=== PATIENT | female | born 1935 | race Caucasian/White ===

== ENCOUNTER 2021-04-29 09:14 | Emergency (ER) | payer MEDICARE | END 2021-04-29 11:21 | disposition home or self-care (01) | LOC: CSHERS 09:14 | DX: I95.9 Hypotension, unspecified (principal); K21.9 Gastro-esophageal reflux disease without esophagitis; E78.5 Hyperlipidemia, unspecified; I10 Essential (primary) hypertension; G43.909 Migraine, unspecified, not intractable, without status migrainosus; Z87.891 Personal history of nicotine dependence; Z79.899 Other long term (current) drug therapy | CPT/HCPCS: 93005 ==

== ENCOUNTER 2021-06-06 16:33 | Emergency (ER) | payer MEDICARE ==
[2021-06-06 18:10] LABS: #Basophils 0.1 10x3/uL (0.0-0.2); #Eosinphils 0.1 10x3/uL (0.0-0.5); #Monocytes 0.7 10x3/uL (0.0-1.1); #Neutrophils 12.2 10x3/uL (1.5-8.4); %Basophils 0.4 % (0.0-2.0); %Eosinophils 0.8 % (0.0-6.0); %Monocytes 4.8 % (0.0-10.0); %Neutrophils 86.7 % (40.0-75.0); Hemoglobin 13.8 g/dL (12.0-15.5); Mean Corpuscular HGB CONC 32.6 g/dL (32.0-36.0); Mean Corpuscular Volume 95.1 fl (81.6-98.3); Mean Platelet Volume 10.5 fl (7.4-10.4); Platelet Count 203 10x3/uL (150-450); Red Blood Cell (RBC) Count 4.45 10x6/uL (3.90-5.03); White Blood Cell (WBC) Count 14.1 10x3/uL (3.5-10.5)
[2021-06-06 18:18] LABS: ALT (SGPT) 57 U/L (8-55); AST (SGOT) 57 U/L (5-34); Albumin 4.4 g/dL (3.4-4.8); Alkaline Phosphatase 122 U/L (40-110); Anion Gap 19 mmol/L (10-20); BUN (Urea Nitrogen) 33 mg/dL (9.8-20.1); Bilirubin, Total 0.6 mg/dL (0.2-1.2); Calc. Creatinine Clearance 0 mL/min (70-130); Calcium 9.8 mg/dL (7.8-10.44); Carbon Dioxide 20 mmol/L (23-31); Chloride 105 mmol/L (98-107); Glucose 108 mg/dL (83-110); Potassium 4.5 mmol/L (3.5-5.1); Protein, Total 7.4 g/dL (5.8-8.1); Sodium 139 mmol/L (136-145)
[2021-06-06] MEDS ORDERED: Ondansetron PF 4 MG/2 ML Vial ONE (19:35)
[2021-06-06] MEDS ORDERED: Morphine 4 MG/ML VIAL ONE (19:35)
[2021-06-06 23:23] LABS: Bilirubin 1+ (Negative); Blood, Urine 10 (Negative); Clarity Clear (Clear); Glucose, Urine (Dipstick) Normal (Negative); Ketone, Urine 15 mg/dL (Negative); Leukocyte 500 (Negative); Nitrite Positive (Negative); Protein, Urine (Dipstick) 15 mg/dl (Neg-Trace); Specific Gravity, Urine 1.015 (1.002-1.036)
[2021-06-06 23:32] LABS: Bacteria/HPF 4+ HPF (None Seen); Mucous/LPF 2+ LPF (<2+); RBC/HPF 0-3 HPF (0-3); WBC/HPF 21-50 HPF (0-3); White Blood Cell Cast 0-3 LPF (None Seen)
[2021-06-06] MEDS ORDERED: Amoxicillin/Potassium Clav 875 MG TAB ONE (23:41)
== END 2021-06-06 23:44 | disposition home or self-care (01) ==
LOC: CSHERS 16:33
DX: K52.9 Noninfective gastroenteritis and colitis, unspecified (principal); E78.00 Pure hypercholesterolemia, unspecified; E78.5 Hyperlipidemia, unspecified; K21.9 Gastro-esophageal reflux disease without esophagitis; I10 Essential (primary) hypertension; G43.909 Migraine, unspecified, not intractable, without status migrainosus; Z87.891 Personal history of nicotine dependence
CPT/HCPCS: 36415; 51701; 71250; 74177; 80053; 81003; 81015; 83605; 83690; 85025; 87077; 87086; 87186; 93005; 93010; 96374; 96375; J2270; J2405

== ENCOUNTER 2021-06-10 16:29 | Inpatient (IN) | payer MEDICARE ==
[2021-06-10] MEDS ORDERED: Morphine 4 MG/ML VIAL ONE (17:14)
[2021-06-10] MEDS ORDERED: Ondansetron PF 4 MG/2 ML Vial ONE (17:14)
[2021-06-10 18:03] LABS: ALT (SGPT) 248 U/L (8-55); AST (SGOT) 338 U/L (5-34); Albumin 3.8 g/dL (3.4-4.8); Alkaline Phosphatase 100 U/L (40-110); Anion Gap 14 mmol/L (10-20); BUN (Urea Nitrogen) 22 mg/dL (9.8-20.1); Bilirubin, Total 0.5 mg/dL (0.2-1.2); Calc. Creatinine Clearance 0 mL/min (70-130); Calcium 9.2 mg/dL (7.8-10.44); Carbon Dioxide 23 mmol/L (23-31); Chloride 103 mmol/L (98-107); Globulin 2.6 g/dL (2.4-3.5); Glucose 76 mg/dL (83-110); Lipase 28 U/L (8-78); Potassium 3.7 mmol/L (3.5-5.1); Protein, Total 6.4 g/dL (5.8-8.1); Sodium 136 mmol/L (136-145)
[2021-06-10 18:53] LABS: #Eosinphils 0.2 10x3/uL (0.0-0.5); #Monocytes 0.5 10x3/uL (0.0-1.1); #Neutrophils 4.2 10x3/uL (1.5-8.4); %Basophils 0.4 % (0.0-2.0); %Eosinophils 3.9 % (0.0-6.0); %Lymphocytes 12.5 % (18.0-47.0); %Monocytes 8.8 % (0.0-10.0); Hemoglobin 12.5 g/dL (12.0-15.5); Mean Corpuscular HGB CONC 32.1 g/dL (32.0-36.0); Mean Corpuscular Hemoglobin 30.8 pg (27.0-33.0); Mean Corpuscular Volume 96.1 fl (81.6-98.3); Mean Platelet Volume 10.7 fl (7.4-10.4); RBC Distribution Width 13.2 % (11.5-14.5); Red Blood Cell (RBC) Count 4.06 10x6/uL (3.90-5.03); White Blood Cell (WBC) Count 5.7 10x3/uL (3.5-10.5)
[2021-06-10 18:54] LABS: Platelet Count 142 10x3/uL (150-450)
[2021-06-10] MEDS ORDERED: metroNIDAZOLE 500 MG/100 ML BAG ONE (19:31)
[2021-06-10 19:36] LABS: SARS-CoV-2 NAA Rapid Test Not Detected (NotDetected)
[2021-06-10] MEDS ORDERED: Dextrose 50% Abboject 50 ML SYRINGE ONE (20:03)
[2021-06-10] MEDS ORDERED: Ondansetron PF 4 MG/2 ML Vial IVP PRN (20:25)
[2021-06-10] MEDS ORDERED: Melatonin 3 MG TAB PO PRN (20:25)
[2021-06-10] MEDS ORDERED: Ondansetron ODT 4 MG TAB PO PRN (20:25)
[2021-06-10 20:50] LABS: Magnesium 1.8 mg/dL (1.6-2.6)
[2021-06-10] MEDS ORDERED: TETANUS, DIPHTHERIA TOX,ADULT (TDVAX) 0.5 ML VIAL IM ONE (20:52)
[2021-06-10] MEDS ORDERED: Cefepime 2 GM in Sodium Chloride 0.9% 100 ML IVPB SCH (21:30)
[2021-06-10] MEDS ORDERED: Pantoprazole 40 MG VIAL IVP SCH (21:30)
[2021-06-10] MEDS: Acetaminophen 325 MG TAB PO PRN (22:38)
[2021-06-10 23:15] VITALS: BMI 21.1
[2021-06-10] MEDS ORDERED: Boostrix 0.5 ML (Tdap) VIAL IM ONE (23:15)
[2021-06-10] MEDS: D5 LR w/20 mEq KCL 1,000 ML IV SCH (23:36)
[2021-06-11] MEDS: metroNIDAZOLE 500 MG in Premix Bag 1 BAG IVPB SCH ×3 (04:30→21:43)
[2021-06-11 07:05] LABS: #Eosinphils 0.4 10x3/uL (0.0-0.5); #Monocytes 0.5 10x3/uL (0.0-1.1); #Neutrophils 2.9 10x3/uL (1.5-8.4); %Basophils 0.4 % (0.0-2.0); %Eosinophils 7.9 % (0.0-6.0); %Lymphocytes 18.8 % (18.0-47.0); %Neutrophils 62.7 % (40.0-75.0); Hemoglobin 11.1 g/dL (12.0-15.5); Mean Corpuscular HGB CONC 31.7 g/dL (32.0-36.0); Mean Corpuscular Hemoglobin 30.4 pg (27.0-33.0); Mean Corpuscular Volume 95.9 fl (81.6-98.3); Mean Platelet Volume 10.7 fl (7.4-10.4); Platelet Count 130 10x3/uL (150-450); RBC Distribution Width 13.2 % (11.5-14.5); Red Blood Cell (RBC) Count 3.65 10x6/uL (3.90-5.03); White Blood Cell (WBC) Count 4.7 10x3/uL (3.5-10.5)
[2021-06-11 07:24] LABS: ALT (SGPT) 268 U/L (8-55); AST (SGOT) 356 U/L (5-34); Alkaline Phosphatase 91 U/L (40-110); Anion Gap 15 mmol/L (10-20); BUN (Urea Nitrogen) 19 mg/dL (9.8-20.1); Bilirubin, Total 0.4 mg/dL (0.2-1.2); Calc. Creatinine Clearance 36 mL/min (70-130); Calcium 8.4 mg/dL (7.8-10.44); Carbon Dioxide 19 mmol/L (23-31); Chloride 107 mmol/L (98-107); Glucose 69 mg/dL (83-110); Potassium 3.2 mmol/L (3.5-5.1); Sodium 138 mmol/L (136-145)
[2021-06-11 08:59] LABS: Hep B Surf Ag Non-Reactive S/CO (NonReactive)
[2021-06-11] MEDS: Ezetimibe 10 MG TAB PO SCH (10:42)
[2021-06-11] MEDS: Amiodarone 200 MG TAB PO SCH (10:43)
[2021-06-11] MEDS: Aspirin 81 mg Enteric Coated Tablet PO SCH (10:43)
[2021-06-11] MEDS: Enoxaparin Sodium 30 MG/0.3 ML SYRINGE SC SCH (10:43)
[2021-06-11] MEDS: FLUoxetine HCl 20 MG CAP PO SCH (10:43)
[2021-06-11] MEDS: Pantoprazole 40 MG VIAL IVP SCH ×2 (10:44→21:43)
[2021-06-11] MEDS ORDERED: Potassium Chloride 20 MEQ TAB PO SCH (11:45)
[2021-06-11 12:40] LABS: Hep C IgG Ab Non-Reactive (NonReactive); Hep C Index 0.08 S/CO (0-0.79)
[2021-06-11] MEDS ORDERED: metroNIDAZOLE 500 MG/100 ML BAG ONE (13:01)
[2021-06-11] MEDS: Cefepime 1 GM in Sodium Chloride 0.9% 100 ML IVPB SCH ×2 (15:05→23:05)
[2021-06-11] MEDS: D5 LR w/20 mEq KCL 1,000 ML IV SCH ×2 (16:06)
[2021-06-12] MEDS: metroNIDAZOLE 500 MG in Premix Bag 1 BAG IVPB SCH ×2 (04:16→10:57)
[2021-06-12] MEDS: Acetaminophen 325 MG TAB PO PRN ×2 (04:16→22:13)
[2021-06-12 04:21] LABS: #Eosinphils 0.3 10x3/uL (0.0-0.5); #Monocytes 0.6 10x3/uL (0.0-1.1); #Neutrophils 2.9 10x3/uL (1.5-8.4); %Basophils 0.6 % (0.0-2.0); %Eosinophils 5.8 % (0.0-6.0); %Lymphocytes 27.1 % (18.0-47.0); %Monocytes 11.1 % (0.0-10.0); %Neutrophils 55.2 % (40.0-75.0); Hemoglobin 10.8 g/dL (12.0-15.5); Mean Corpuscular HGB CONC 32.1 g/dL (32.0-36.0); Mean Corpuscular Hemoglobin 30.8 pg (27.0-33.0); Mean Corpuscular Volume 95.7 fl (81.6-98.3); Mean Platelet Volume 10.8 fl (7.4-10.4); Platelet Count 152 10x3/uL (150-450); RBC Distribution Width 13.4 % (11.5-14.5); Red Blood Cell (RBC) Count 3.51 10x6/uL (3.90-5.03); White Blood Cell (WBC) Count 5.3 10x3/uL (3.5-10.5)
[2021-06-12 04:41] LABS: ALT (SGPT) 250 U/L (8-55); AST (SGOT) 266 U/L (5-34); Albumin 2.9 g/dL (3.4-4.8); Alkaline Phosphatase 93 U/L (40-110); Anion Gap 11 mmol/L (10-20); BUN (Urea Nitrogen) 11 mg/dL (9.8-20.1); Bilirubin, Total 0.3 mg/dL (0.2-1.2); Calc. Creatinine Clearance 39 mL/min (70-130); Calcium 8.2 mg/dL (7.8-10.44); Carbon Dioxide 20 mmol/L (23-31); Chloride 112 mmol/L (98-107); Globulin 1.8 g/dL (2.4-3.5); Glucose 101 mg/dL (83-110); Potassium 4.2 mmol/L (3.5-5.1); Protein, Total 4.7 g/dL (5.8-8.1); Sodium 139 mmol/L (136-145)
[2021-06-12] MEDS: Ezetimibe 10 MG TAB PO SCH (09:20)
[2021-06-12] MEDS: FLUoxetine HCl 20 MG CAP PO SCH (09:20)
[2021-06-12] MEDS: Amiodarone 200 MG TAB PO SCH (09:20)
[2021-06-12] MEDS: Pantoprazole 40 MG VIAL IVP SCH ×2 (09:20→22:14)
[2021-06-12] MEDS: Enoxaparin Sodium 30 MG/0.3 ML SYRINGE SC SCH (09:20)
[2021-06-12] MEDS: Aspirin 81 mg Enteric Coated Tablet PO SCH (09:20)
[2021-06-12] MEDS: Cefepime 1 GM in Sodium Chloride 0.9% 100 ML IVPB SCH (12:13)
[2021-06-12] MEDS: D5 LR w/20 mEq KCL 1,000 ML IV SCH (18:10)
[2021-06-12] MEDS: metroNIDAZOLE 500 MG TAB PO SCH (22:14)
[2021-06-13] MEDS: metroNIDAZOLE 500 MG TAB PO SCH ×2 (04:44→12:51)
[2021-06-13] MEDS: Ezetimibe 10 MG TAB PO SCH (09:13)
[2021-06-13] MEDS: Amiodarone 200 MG TAB PO SCH (09:13)
[2021-06-13] MEDS: Pantoprazole 40 MG VIAL IVP SCH (09:13)
[2021-06-13] MEDS: FLUoxetine HCl 20 MG CAP PO SCH (09:13)
[2021-06-13] MEDS: Aspirin 81 mg Enteric Coated Tablet PO SCH (09:13)
[2021-06-13] MEDS: Enoxaparin Sodium 30 MG/0.3 ML SYRINGE SC SCH (09:13)
[2021-06-13 15:23] VITALS: BP 144/66; TEMP 98.7
== END 2021-06-13 16:33 | disposition home or self-care (01) | DRG 394 ==
LOC: CSHERS 16:29 → CSHTELE 21:14
PROVIDERS: ADMIT Family Medicine; ATTEND Family Medicine
DX: K55.9 Vascular disorder of intestine, unspecified (principal); I50.22 Chronic systolic (congestive) heart failure; I42.9 Cardiomyopathy, unspecified; I71.4 Abdominal aortic aneurysm, without rupture; I73.9 Peripheral vascular disease, unspecified; E78.5 Hyperlipidemia, unspecified; I48.0 Paroxysmal atrial fibrillation; Z96.652 Presence of left artificial knee joint; N18.32 Chronic kidney disease, stage 3b; F32.A Depression, unspecified; Z96.611 Presence of right artificial shoulder joint; D50.9 Iron deficiency anemia, unspecified; Z20.822 Contact with and (suspected) exposure to COVID-19; Z79.82 Long term (current) use of aspirin; Z79.899 Other long term (current) drug therapy; Z90.49 Acquired absence of other specified parts of digestive tract; Z87.891 Personal history of nicotine dependence
CPT/HCPCS: 36415; 36416; 74177; 80053; 83690; 83735; 85025; 86709; 86803; 87340; 90714; 90715; 93005; 96365; 96367; 96375; C9113; J0692; J1650; J2270; J2405; J3480; J3490; J7070; U0002

== ENCOUNTER 2021-06-28 13:06 | Emergency (ER) | payer MEDICARE ==
[2021-06-28 15:01] LABS: #Monocytes 0.7 10x3/uL (0.0-1.1); #Neutrophils 7.3 10x3/uL (1.5-8.4); %Basophils 0.3 % (0.0-2.0); %Eosinophils 0.1 % (0.0-6.0); %Lymphocytes 14.1 % (18.0-47.0); %Monocytes 7.4 % (0.0-10.0); %Neutrophils 77.7 % (40.0-75.0); Hemoglobin 13.3 g/dL (12.0-15.5); Mean Corpuscular HGB CONC 32.3 g/dL (32.0-36.0); Mean Platelet Volume 11.5 fl (7.4-10.4); Platelet Count 173 10x3/uL (150-450); RBC Distribution Width 14.3 % (11.5-14.5); Red Blood Cell (RBC) Count 4.43 10x6/uL (3.90-5.03); White Blood Cell (WBC) Count 9.4 10x3/uL (3.5-10.5)
[2021-06-28 15:31] LABS: ALT (SGPT) 366 U/L (8-55); AST (SGOT) 608 U/L (5-34); Albumin 3.6 g/dL (3.4-4.8); Alkaline Phosphatase 99 U/L (40-110); Anion Gap 15 mmol/L (10-20); BUN (Urea Nitrogen) 20 mg/dL (9.8-20.1); Bilirubin, Total 0.5 mg/dL (0.2-1.2); Calc. Creatinine Clearance 0 mL/min (70-130); Calcium 9.2 mg/dL (7.8-10.44); Carbon Dioxide 21 mmol/L (23-31); Chloride 105 mmol/L (98-107); Globulin 2.6 g/dL (2.4-3.5); Glucose 99 mg/dL (83-110); Potassium 4.3 mmol/L (3.5-5.1); Protein, Total 6.2 g/dL (5.8-8.1); Sodium 137 mmol/L (136-145)
[2021-06-28 17:14] LABS: Bilirubin 1+ (Negative); Blood, Urine 50 (Negative); Clarity Clear (Clear); Glucose, Urine (Dipstick) Normal (Negative); Ketone, Urine Negative (Negative); Leukocyte Negative (Negative); Nitrite Negative (Negative); Protein, Urine (Dipstick) 30 mg/dl (Neg-Trace); Specific Gravity, Urine 1.015 (1.002-1.036); Urobilinogen Normal mg/dL (Less than 2)
[2021-06-28 17:25] LABS: Bacteria/HPF Rare-Few HPF (None Seen); RBC/HPF 0-3 HPF (0-3); Squamous Epithelial 0-3 HPF (0-3); Transitional Epithelial 0-3 HPF (None Seen); WBC/HPF 0-3 HPF (0-3)
== END 2021-06-28 20:07 ==
LOC: CSHERS 13:06
DX: E86.0 Dehydration (principal); R19.7 Diarrhea, unspecified; W19.XXXA Unspecified fall, initial encounter; I10 Essential (primary) hypertension; E78.00 Pure hypercholesterolemia, unspecified; E78.5 Hyperlipidemia, unspecified; G43.909 Migraine, unspecified, not intractable, without status migrainosus; K21.9 Gastro-esophageal reflux disease without esophagitis; F17.200 Nicotine dependence, unspecified, uncomplicated
CPT/HCPCS: 36415; 76705; 80053; 81003; 81015; 85025

== ENCOUNTER 2021-09-29 11:35 | Inpatient (IN) | payer MEDICARE ==
[2021-09-29 13:25] LABS: Hemoglobin 12.1 g/dL (12.0-15.5); Mean Corpuscular HGB CONC 31.7 g/dL (32.0-36.0); Mean Corpuscular Hemoglobin 31.9 pg (27.0-33.0); Mean Corpuscular Volume 100.8 fl (81.6-98.3); Mean Platelet Volume 10.8 fl (7.4-10.4); Platelet Count 311 10x3/uL (150-450); RBC Distribution Width 17.7 % (11.5-14.5); Red Blood Cell (RBC) Count 3.79 10x6/uL (3.90-5.03); White Blood Cell (WBC) Count 20.5 10x3/uL (3.5-10.5)
[2021-09-29 13:37] LABS: PTT 24.7 sec (22.0-33.0); Prothrombin Time 10.9 sec (9.5-12.1)
[2021-09-29 13:41] LABS: ALT (SGPT) 111 U/L (8-55); AST (SGOT) 139 U/L (5-34); Albumin 3.6 g/dL (3.4-4.8); Alkaline Phosphatase 238 U/L (40-110); Anion Gap 19 mmol/L (10-20); BUN (Urea Nitrogen) 24 mg/dL (9.8-20.1); Bilirubin, Total 1.1 mg/dL (0.2-1.2); Calc. Creatinine Clearance 0 mL/min (70-130); Calcium 9.6 mg/dL (7.8-10.44); Carbon Dioxide 20 mmol/L (23-31); Chloride 105 mmol/L (98-107); Globulin 2.6 g/dL (2.4-3.5); Glucose 100 mg/dL (83-110); Potassium 3.8 mmol/L (3.5-5.1); Protein, Total 6.2 g/dL (5.8-8.1); Sodium 140 mmol/L (136-145)
[2021-09-29 13:43] LABS: MDiff Complete? YES
[2021-09-29 13:46] LABS: Band 14 % (5-11); Lymphocytes 5 % (21-51); Monocytes 4 % (0-10); Neutrophil 77 % (42-75); Platelet Morphology Comment Appears Adequate
[2021-09-29 13:47] LABS: RBC Morphology Normal
[2021-09-29 13:52] LABS: Bilirubin Neg (Negative); Blood, Urine Negative (Negative); Clarity Slightly Cloudy (Clear); Glucose, Urine (Dipstick) Normal (Negative); Ketone, Urine 5 mg/dL (Negative); Leukocyte Negative (Negative); Nitrite Negative (Negative); Protein, Urine (Dipstick) 15 mg/dl (Neg-Trace); Specific Gravity, Urine 1.025 (1.002-1.036)
[2021-09-29] MEDS ORDERED: cefTRIAXone\\ROCEPHIN 2 GM VIAL ONE (14:30)
[2021-09-29] MEDS ORDERED: Acetaminophen 500 MG TAB ONE (14:30)
[2021-09-29] MEDS ORDERED: Ondansetron ODT 4 MG TAB PO PRN (16:17)
[2021-09-29] MEDS ORDERED: Ondansetron PF 4 MG/2 ML Vial IVP PRN (16:17)
[2021-09-29] MEDS ORDERED: Acetaminophen 650 MG Suppository PR PRN (16:17)
[2021-09-29] MEDS ORDERED: Sodium Chloride 0.9% 1,000 ML IV SCH ×2 (16:30→16:39)
[2021-09-29] MEDS ORDERED: Magnesium 2 GM/50 ML(in water) 2 GM in Premix Bag 1 BAG IVPB SCH (17:00)
[2021-09-29] MEDS ORDERED: Ziprasidone 20 MG VIAL ONE (17:12)
[2021-09-29] MEDS ORDERED: Sterile Water 10 ML ONE (17:13)
[2021-09-29] MEDS ORDERED: Magnesium 2 GM/50 ML BAG (IN WATER) ONE (17:59)
[2021-09-29] MEDS: NS 0.9% w/ 20 MEQ KCL 1,000 ML/1,000 ML BAG IV SCH (18:09)
[2021-09-29 18:30] VITALS: BMI 20.9
[2021-09-29 19:41] LABS: Troponin I 0.018 ng/mL (< 0.028)
[2021-09-29 20:19] LABS: SARS-CoV-2 NAA Rapid Test Not Detected (NotDetected)
[2021-09-30] MEDS: Acetaminophen 325 MG TAB PO PRN ×3 (02:20→21:22)
[2021-09-30 04:18] LABS: #Eosinphils 0.2 10x3/uL (0.0-0.5); #Monocytes 0.8 10x3/uL (0.0-1.1); #Neutrophils 10.9 10x3/uL (1.5-8.4); %Basophils 0.3 % (0.0-2.0); %Eosinophils 1.6 % (0.0-6.0); %Lymphocytes 9.6 % (18.0-47.0); %Monocytes 6.3 % (0.0-10.0); %Neutrophils 81.8 % (40.0-75.0); Hemoglobin 10.4 g/dL (12.0-15.5); Mean Corpuscular HGB CONC 32.5 g/dL (32.0-36.0); Mean Corpuscular Hemoglobin 32.1 pg (27.0-33.0); Mean Corpuscular Volume 98.8 fl (81.6-98.3); Mean Platelet Volume 10.3 fl (7.4-10.4); Platelet Count 242 10x3/uL (150-450); Red Blood Cell (RBC) Count 3.24 10x6/uL (3.90-5.03); White Blood Cell (WBC) Count 13.3 10x3/uL (3.5-10.5)
[2021-09-30 04:47] LABS: Anion Gap 17 mmol/L (10-20); BUN (Urea Nitrogen) 26 mg/dL (9.8-20.1); Calc. Creatinine Clearance 50 mL/min (70-130); Carbon Dioxide 19 mmol/L (23-31); Chloride 109 mmol/L (98-107); Potassium 3.8 mmol/L (3.5-5.1); Sodium 141 mmol/L (136-145)
[2021-09-30 04:48] LABS: ALT (SGPT) 90 U/L (8-55); AST (SGOT) 98 U/L (5-34); Albumin 2.8 g/dL (3.4-4.8); Alkaline Phosphatase 192 U/L (40-110); Bilirubin, Total 0.5 mg/dL (0.2-1.2); Calcium 8.7 mg/dL (7.8-10.44); Glucose 73 mg/dL (83-110); Protein, Total 4.8 g/dL (5.8-8.1)
[2021-09-30] MEDS: NS 0.9% w/ 20 MEQ KCL 1,000 ML/1,000 ML BAG IV SCH (05:26)
[2021-09-30] MEDS: Cholecalciferol 1,000 UNITS (25 MCG) TAB PO SCH (09:32)
[2021-09-30] MEDS: Aspirin 81 mg Enteric Coated Tablet PO SCH (09:32)
[2021-09-30] MEDS: FLUoxetine HCl 20 MG CAP PO SCH (09:33)
[2021-09-30] MEDS: Sodium Chloride 0.9% 1,000 ML IV SCH ×2 (10:59→19:55)
[2021-09-30] MEDS: cefTRIAXone\\ROCEPHIN 1 GM in Sodium Chloride 0.9% 100 ML IVPB SCH (15:27)
[2021-09-30] MEDS: Atorvastatin Calcium 40 MG TAB PO SCH (21:10)
[2021-09-30] MEDS: Calcium Carbonate 600 MG + Vit D TAB PO SCH (21:10)
[2021-10-01] MEDS ORDERED: Ketorolac Tromethamine 30 MG/ML VIAL IVP SCH (00:30)
[2021-10-01] MEDS: Sodium Chloride 0.9% 1,000 ML IV SCH ×2 (02:23→12:30)
[2021-10-01] MEDS: Acetaminophen 325 MG TAB PO PRN ×3 (05:01→20:42)
[2021-10-01 05:27] LABS: #Eosinphils 0.4 10x3/uL (0.0-0.5); #Monocytes 0.6 10x3/uL (0.0-1.1); #Neutrophils 10.3 10x3/uL (1.5-8.4); %Basophils 0.3 % (0.0-2.0); %Eosinophils 3.2 % (0.0-6.0); %Lymphocytes 10.7 % (18.0-47.0); %Monocytes 4.9 % (0.0-10.0); %Neutrophils 80.6 % (40.0-75.0); Hemoglobin 10.8 g/dL (12.0-15.5); Mean Corpuscular HGB CONC 32.2 g/dL (32.0-36.0); Mean Corpuscular Hemoglobin 32.3 pg (27.0-33.0); Mean Corpuscular Volume 100.3 fl (81.6-98.3); Mean Platelet Volume 10.6 fl (7.4-10.4); Platelet Count 213 10x3/uL (150-450); RBC Distribution Width 17.8 % (11.5-14.5); Red Blood Cell (RBC) Count 3.34 10x6/uL (3.90-5.03); White Blood Cell (WBC) Count 12.7 10x3/uL (3.5-10.5)
[2021-10-01 05:38] LABS: ALT (SGPT) 77 U/L (8-55); AST (SGOT) 81 U/L (5-34); Albumin 2.7 g/dL (3.4-4.8); Alkaline Phosphatase 184 U/L (40-110); Anion Gap 10 mmol/L (10-20); BUN (Urea Nitrogen) 18 mg/dL (9.8-20.1); Bilirubin, Total 0.5 mg/dL (0.2-1.2); Calc. Creatinine Clearance 56 mL/min (70-130); Calcium 8.4 mg/dL (7.8-10.44); Carbon Dioxide 22 mmol/L (23-31); Chloride 114 mmol/L (98-107); Globulin 2.3 g/dL (2.4-3.5); Glucose 76 mg/dL (83-110); Potassium 4.3 mmol/L (3.5-5.1); Sodium 142 mmol/L (136-145)
[2021-10-01] MEDS: Cholecalciferol 1,000 UNITS (25 MCG) TAB PO SCH (08:34)
[2021-10-01] MEDS: FLUoxetine HCl 20 MG CAP PO SCH (08:35)
[2021-10-01] MEDS: Aspirin 81 mg Enteric Coated Tablet PO SCH (08:35)
[2021-10-01] MEDS: cefTRIAXone\\ROCEPHIN 1 GM in Sodium Chloride 0.9% 100 ML IVPB SCH (14:15)
[2021-10-01] MEDS: Lactated Ringer's 1,000 ML IV SCH (15:51)
[2021-10-01] MEDS: Calcium Carbonate 600 MG + Vit D TAB PO SCH (20:41)
[2021-10-01] MEDS: Atorvastatin Calcium 40 MG TAB PO SCH (20:41)
[2021-10-02] MEDS: Acetaminophen 325 MG TAB PO PRN ×5 (00:32→23:40)
[2021-10-02] MEDS: Lactated Ringer's 1,000 ML IV SCH (04:23)
[2021-10-02] MEDS: FLUoxetine HCl 20 MG CAP PO SCH (08:26)
[2021-10-02] MEDS: Aspirin 81 mg Enteric Coated Tablet PO SCH (08:27)
[2021-10-02] MEDS: Cholecalciferol 1,000 UNITS (25 MCG) TAB PO SCH (08:27)
[2021-10-02] MEDS: cefTRIAXone\\ROCEPHIN 1 GM in Sodium Chloride 0.9% 100 ML IVPB SCH (13:23)
[2021-10-02] MEDS: Calcium Carbonate 600 MG + Vit D TAB PO SCH (20:10)
[2021-10-02] MEDS: Atorvastatin Calcium 40 MG TAB PO SCH (20:10)
[2021-10-03] MEDS: Aspirin 81 mg Enteric Coated Tablet PO SCH (08:14)
[2021-10-03] MEDS: Acetaminophen 325 MG TAB PO PRN (08:15)
[2021-10-03] MEDS: Cholecalciferol 1,000 UNITS (25 MCG) TAB PO SCH (08:15)
[2021-10-03] MEDS: FLUoxetine HCl 20 MG CAP PO SCH (08:15)
[2021-10-03] MEDS ORDERED: Amlodipine 5 MG TAB PO SCH (09:00)
[2021-10-03] MEDS ORDERED: Amiodarone 200 MG TAB PO SCH (09:00)
[2021-10-03] MEDS: cefTRIAXone\\ROCEPHIN 1 GM in Sodium Chloride 0.9% 100 ML IVPB SCH (13:36)
[2021-10-03 18:05] VITALS: BP 172/73; TEMP 98.1
== END 2021-10-03 20:12 | DRG 871 ==
LOC: CSHERS 11:35 → CSHTELE 16:04
PROVIDERS: ADMIT Internal Medicine; ATTEND Family Medicine
DX: A41.51 Sepsis due to Escherichia coli [E. coli] (principal); G93.41 Metabolic encephalopathy; N39.0 Urinary tract infection, site not specified; M62.82 Rhabdomyolysis; I42.9 Cardiomyopathy, unspecified; I50.22 Chronic systolic (congestive) heart failure; E87.2 Acidosis; R13.12 Dysphagia, oropharyngeal phase; I73.9 Peripheral vascular disease, unspecified; K57.30 Diverticulosis of large intestine without perforation or abscess without bleeding; I25.10 Atherosclerotic heart disease of native coronary artery without angina pectoris; I11.0 Hypertensive heart disease with heart failure; E86.0 Dehydration; E78.5 Hyperlipidemia, unspecified; R74.01 Elevation of levels of liver transaminase levels; F32.A Depression, unspecified; G43.909 Migraine, unspecified, not intractable, without status migrainosus; K21.9 Gastro-esophageal reflux disease without esophagitis; I08.3 Combined rheumatic disorders of mitral, aortic and tricuspid valves; E78.00 Pure hypercholesterolemia, unspecified; I48.0 Paroxysmal atrial fibrillation; Z20.822 Contact with and (suspected) exposure to COVID-19; I45.81 Long QT syndrome; Z96.652 Presence of left artificial knee joint; Z60.2 Problems related to living alone; Z87.891 Personal history of nicotine dependence; Z98.890 Other specified postprocedural states; Z95.0 Presence of cardiac pacemaker; Z72.89 Other problems related to lifestyle; Z79.82 Long term (current) use of aspirin; Z79.899 Other long term (current) drug therapy; Z82.49 Family history of ischemic heart disease and other diseases of the circulatory system; Z28.310 Unvaccinated for COVID-19
CPT/HCPCS: 36415; 51701; 70450; 71045; 72125; 72170; 74176; 74230; 80053; 81003; 82550; 83605; 84443; 84484; 85025; 85610; 85730; 86140; 87040; 87077; 87086; 87186; 93005; 94760; 96365; 96366; J0696; J1885; J3475; J3480; J3486; J3490; J7050; J7120

== ENCOUNTER 2022-03-01 19:48 | Emergency (ER) | payer MEDICARE ==
[2022-03-02] MEDS ORDERED: Fluconazole 100 MG TAB PO SCH (01:00)
== END 2022-03-02 01:04 | disposition home or self-care (01) ==
LOC: CSHERS 19:48
DX: B37.3 Candidiasis of vulva and vagina (principal); I10 Essential (primary) hypertension; E78.5 Hyperlipidemia, unspecified; K21.9 Gastro-esophageal reflux disease without esophagitis; Z79.82 Long term (current) use of aspirin; Z79.899 Other long term (current) drug therapy
CPT/HCPCS: 99283

== ENCOUNTER 2022-10-05 19:47 | Emergency (ER) | payer MEDICARE ==
[2022-10-05] MEDS ORDERED: Ondansetron PF 4 MG/2 ML Vial ONE (20:41)
[2022-10-05] MEDS ORDERED: Morphine 4 MG/ML VIAL ONE (20:41)
[2022-10-05 21:42] LABS: Bilirubin Neg (Negative); Blood, Urine Negative (Negative); Clarity Clear (Clear); Glucose, Urine (Dipstick) Normal (Negative); Ketone, Urine Negative (Negative); Leukocyte 25 (Negative); Nitrite Positive (Negative); Protein, Urine (Dipstick) Negative (Neg-Trace); Specific Gravity, Urine 1.015 (1.005-1.030); Urobilinogen Normal mg/dL (Less than 2)
[2022-10-05 21:51] LABS: Bacteria/HPF 4+ HPF (None Seen); Mucous/LPF 1+ LPF (<2+); RBC/HPF None Seen HPF (0-3); Squamous Epithelial 0-3 HPF (0-3); Transitional Epithelial 0-3 HPF (None Seen); WBC/HPF 0-3 HPF (0-3)
[2022-10-05] MEDS ORDERED: traMADol HCl 50 MG TAB ONE (22:16)
== END 2022-10-05 22:10 | disposition home or self-care (01) ==
LOC: CSHERS 19:47
DX: N75.8 Other diseases of Bartholin's gland (principal); N89.8 Other specified noninflammatory disorders of vagina; N39.0 Urinary tract infection, site not specified; I10 Essential (primary) hypertension; E78.5 Hyperlipidemia, unspecified; Z79.82 Long term (current) use of aspirin; Z79.899 Other long term (current) drug therapy
CPT/HCPCS: 81003; 81015; 96374; 96375; J2270; J2405